=== PATIENT | female | born 1980 | race African-American/Black ===

== ENCOUNTER 2017-06-02 05:56 | Inpatient (IN) | payer MEDICAID ==
[2017-06-02] VITALS (30 sets, daily range): BP systolic 127–178; BP diastolic 71–98; PULSE 18–84; RESP 17–20; TEMP 97.6–98.7; O2SAT 99–100
[~2017-06-02] VITALS: Ht 167.6 cm; Wt 83.9 kg
[~2017-06-02 05:56] MED LIST: DOCU1CAP39 PO; FERR324T8 PO; PREN0.01 PO
[2017-06-02 06:51] LABS: AUTOMATED NEUTROPHIL # 2.4 TH/MM3 (1.8-7.7); BASOPHIL % 0.9 % (0.0-2.0); EOSINOPHIL # 0.2 TH/MM3 (0-0.4); EOSINOPHIL % 4.9 % (0.0-4.0); HEMATOCRIT 34.7 % (35.0-46.0); HEMOGLOBIN 11.8 GM/DL (11.6-15.3); LYMPH % 21.2 % (9.0-44.0); LYMPHOCYTE # 0.9 TH/MM3 (1.0-4.8); MEAN CELL VOLUME 86.6 FL (80.0-100.0); MEAN CORPUSCULAR HEMOGLOBIN 29.4 PG (27.0-34.0); MEAN CORPUSCULAR HGB CONC 33.9 % (32.0-36.0); MEAN PLATELET VOLUME 9.1 FL (7.0-11.0); MONO % 17.1 % (0.0-8.0); MONOCYTE # 0.7 TH/MM3 (0-0.9); NEUT % 55.9 % (16.0-70.0); PLATELET COUNT 166 TH/MM3 (150-450); RED CELL DISTRIBUTION WIDTH 13.7 % (11.6-17.2); WHITE BLOOD COUNT 4.3 TH/MM3 (4.0-11.0)
[2017-06-02] MEDS ORDERED: ceFAZolin 2 GM PREMIX 50 ML IV SCH (07:00)
[2017-06-02] MEDS ORDERED: LACTATED RINGER'S 1000 ML IV ONE (07:00)
[2017-06-02] MEDS ORDERED: LACTATED RINGER'S 1000 ML IV SCH (07:00)
[2017-06-02] MEDS ORDERED: CITRIC ACID-SODIUM CITRATE LIQ 30 ML UDC PO SCH (07:00)
[2017-06-02 07:25] LABS: BILIRUBIN, URINE NEG (NEG); BLOOD, URINE NEG (NEG); GLUCOSE,URINE NEG (NEG); KETONE, URINE NEG (NEG); MUCUS URINE FEW /lpf (OCC); NITRITE,URINE NEG (NEG); PH, URINE 6.5 (5.0-8.5); SQUAMOUS EPITHELIAL CELL URINE 6 /hpf (0-5); URINE COLOR YELLOW (YELLW/STRAW); URINE LEUKOCYTE ESTERASE NEG (NEG)
[2017-06-02] MEDS ORDERED: DOCUSATE SODIUM 50 MG/SENNA 8.6 MG TAB PO PRN (08:00)
[2017-06-02] MEDS ORDERED: SIMETHICONE 80 MG CHEWABLE TAB PO PRN (08:00)
[2017-06-02] MEDS ORDERED: KETOROLAC TROMETHAMINE 60 MG/2 ML (IM) VIAL IM PRN (08:00)
[2017-06-02] MEDS ORDERED: SODIUM CHLORIDE 0.9% FLUSH 10 ML FLUSH IV FLUSH PRN (08:00)
[2017-06-02] MEDS ORDERED: OXYTOCIN 30 UNITS-500ML PREMIX 500 ML IV ONE (08:00)
[2017-06-02] MEDS ORDERED: ONDANSETRON HCL 4 MG/2 ML VIAL IV PUSH PRN (08:00)
[2017-06-02] MEDS ORDERED: MORPHINE SULFATE PF 5 MG/10 ML VIAL ONE (08:07)
[2017-06-02] MEDS ORDERED: ACETAMINOPHEN 1000 MG/100 ML 100 ML IV ONE (08:07)
--- NOTE | 2017-06-02 08:34 | MH ---
cc: Zelda Lux MD DATE OF ADMISSION: 06/02/2017 HISTORY OF PRESENT ILLNESS: She is 36 years old, 4, para 2-1-0-2, intrauterine at 39-weeks, previous section x 2, previous myomectomy, intrauterine insemination . The patient is being admitted for repeat . She declines a tubal ligation. care has been with [facility] complicated by a Bartholin cyst which was I and D'd at about 29 weeks. She had group B strep on the Bartholin swab. PAST OB HISTORY: Significant for 1 vaginal stillborn in 2008, a in 2009, in 2011. PAST WRAP CHECKER HISTORY: Significant for a myomectomy in 2008. Her Pap smear was atypical squamous cells of undetermined significance in October of 2016. She has a history of fibroids. PAST MEDICAL HISTORY: She denies hypertension, diabetes or asthma. PAST SURGICAL HISTORY: She had 2 C-sections, laparoscopy, myomectomy. MEDICATIONS: She takes vitamins. ALLERGIES: NO KNOWN DRUG ALLERGIES PHYSICAL EXAMINATION: VITAL SIGNS: Stable. She is afebrile. Blood pressure is 128/82. She is 196 pounds. HEAD/HEART/CHEST/LUNG: Exams are all within normal limits. ABDOMEN: Soft, nontender, gravid. PELVIC: Her cervix is closed. EXTREMITIES: No edema, cyanosis or clubbing. ASSESSMENT AND PLAN: She is 36 years old, 4, para 2-1-0-2 intrauterine at 39 weeks, previous section x2 with previous myomectomy x1. She has been counseled as to the risks, benefits and alternatives of a repeat section. She declines a tubal ligation. MD LEXIE Bhatt/TL/rh , 03:14 PM , 03:26 PM
[2017-06-02] MEDS: SODIUM CHLORIDE 0.9% FLUSH 10 ML FLUSH IV FLUSH SCH ×2 (09:00→21:27)
--- NOTE | 2017-06-02 09:40 | MP ---
cc: Zelda Lux MD DATE OF OPERATION: 06/02/2017 PREOPERATIVE DIAGNOSIS: Intrauterine at 39 weeks. Previous section x 2. Previous myomectomy. POSTOPERATIVE DIAGNOSIS: Intrauterine at 39 weeks. Previous section x 2. Previous myomectomy. PROCEDURE: Repeat lower segment transverse section via Pfannenstiel skin incision. SURGEON: Zelda Lux MD ANESTHESIA: Spinal. FLUIDS: 1500 mL. ESTIMATED BLOOD LOSS: 650 mL. URINE OUTPUT: 200 mL clear yellow at the end of the procedure. FINDINGS: A live female was delivered vertex presentation. 's 8 at one minute, 8 at five minutes. weight was 7 pounds, 15 ounces. PROCEDURE: The patient was taken to the operating room where spinal anesthesia was found to be adequate. She was then prepped and draped in the normal sterile fashion in the dorsal supine position with a leftward tilt. A Pfannenstiel skin incision was made with a scalpel and carried down to the underlying layer of fascia. The fascia was nicked in the midline with a scalpel and the incision was extended laterally with curved Munson scissors. Attention was turned to the inferior aspect of the incision which was grasped with Vikram clamps, elevated and the rectus muscles dissected off sharply. Attention was turned to the superior aspect of the incision which was grasped with Vikram clamps, elevated and the rectus muscles dissected off sharply. The rectus muscles were in the midline. The peritoneum was elevated and entered sharply with Metzenbaum scissors. This incision was extended superiorly and inferiorly with good visualization of the bladder. The bladder blade was inserted. The vesicouterine peritoneum was noted to be low and a window was noted in the lower uterine segment. This was incised transversely with a scalpel. Clear amniotic fluid was noted. The uterine incision was extended laterally with bandage scissors. The vertex was delivered. The oral and nasopharynx were bulb suctioned with a syringe. The shoulders were delivered atraumatically. The cord was clamped x 2 and cut after waiting for 45 seconds. The placenta was delivered manually and sent for donation. The uterus was cleared of all clots and debris. The uterine incision was repaired in 2 layers with 1 Vicryl. Three additional [id number] sutures were placed in the midline for hemostasis. The gutters were cleared of all clots and debris. The fascia was repaired in a running fashion with 0 Vicryl. The skin was closed with nirmala. A pressure dressing was applied. The sponge, lap, needle and instrument counts were correct x 3. The patient was transferred to the recovery room in stable condition. MD LEXIE Bhatt/KIMBER/elliot , 09:04 AM , 09:32 AM SONJA
[2017-06-02] MEDS ORDERED: NIFEdipine 10 MG CAP ONE ×2 (10:08→10:33)
[2017-06-02] MEDS ORDERED: OXYTOCIN 30 UNITS-500ML PREMIX 500 ML ONE (10:52)
[2017-06-02] MEDS ORDERED: hydrALAZINE HCL 20 MG/ML VIAL ONE (11:38)
[2017-06-02] MEDS: oxyCODONE/ACETAMINOPHEN 5 MG/325 MG TAB PO PRN ×2 (11:49→18:24)
[2017-06-02] MEDS ORDERED: ONDANSETRON HCL 4 MG/2 ML VIAL IV ONE (12:00)
[2017-06-02] MEDS ORDERED: KETOROLAC TROMETHAMINE 30 MG/ML (IVP) VIAL IV PUSH ONE (12:00)
[2017-06-02] MEDS ORDERED: NIFEdipine 20 MG CAP PO PRN (12:00)
[2017-06-02] MEDS ORDERED: NIFEdipine 10 MG CAP PO PRN (12:00)
[2017-06-02] MEDS ORDERED: CALCIUM GLUCONATE 10% 1 GM/10 ML VIAL IV PUSH PRN (12:00)
[2017-06-02] MEDS ORDERED: EPIDURAL-NALOXONE HCL 0.4 MG/ML AMP IV PUSH PRN (12:00)
[2017-06-02] MEDS ORDERED: DEXAMETHASONE SOD PHOS 4 MG/ML VIAL IV ONE (12:00)
[2017-06-02] MEDS ORDERED: EPIDURAL-DO NOT ADMINISTER ANTICOAGULANTS PRN (12:00)
[2017-06-02] MEDS ORDERED: EPIDURAL-NO SYSTEMIC NARCOTICS PRN (12:00)
[2017-06-02] MEDS ORDERED: MAGNESIUM SULFATE 40 GM PREMIX 1,000 ML IV SCH (12:00)
[2017-06-02] MEDS ORDERED: LACTATED RINGER'S 1000 ML INJ 1,000 ML IV SCH ×2 (12:00→12:48)
[2017-06-02] MEDS ORDERED: EPIDURAL-DIPHENHYDRAMINE HCL 50 MG/ML VIAL IV PUSH PRN (12:00)
[2017-06-02] MEDS ORDERED: LACTATED RINGER'S 1000 ML INJ 1,000 ML IV ONE (12:00)
[2017-06-02] MEDS ORDERED: MAGNESIUM SULFATE 4GRAM PRMIX-LOAD DOSE IV ONE (12:00)
[2017-06-02] MEDS ORDERED: OXYTOCIN 10 UNIT/ML AMP IV ONE (12:00)
[2017-06-02] MEDS ORDERED: EPIDURAL-DIPHENHYDRAMINE HCL 50 MG CAP PO PRN (12:00)
[2017-06-02] MEDS ORDERED: hydrALAZINE HCL 20 MG/ML VIAL IV ONE ×2 (12:15)
[2017-06-02] MEDS ORDERED: OXYTOCIN 30 UNITS-500ML PREMIX 500 ML IV PRN (18:00)
[2017-06-02] MEDS: IBUPROFEN 600 MG TAB PO PRN (18:24)
[2017-06-02] MEDS ORDERED: ZOLPIDEM TARTRATE 5 MG TAB PO PRN (21:00)
[2017-06-03] VITALS (11 sets, daily range): BP systolic 126–152; BP diastolic 71–88; PULSE 81–100; RESP 14–36; TEMP 98.3–99.4; O2SAT 97–100
[2017-06-03 06:17] LABS: AUTOMATED NEUTROPHIL # 7.2 TH/MM3 (1.8-7.7); BASOPHIL % 0.3 % (0.0-2.0); EOSINOPHIL % 0.1 % (0.0-4.0); LYMPH % 13.1 % (9.0-44.0); LYMPHOCYTE # 1.2 TH/MM3 (1.0-4.8); MEAN CELL VOLUME 87.1 FL (80.0-100.0); MEAN CORPUSCULAR HEMOGLOBIN 30.1 PG (27.0-34.0); MEAN CORPUSCULAR HGB CONC 34.6 % (32.0-36.0); MEAN PLATELET VOLUME 9.5 FL (7.0-11.0); MONOCYTE # 0.8 TH/MM3 (0-0.9); NEUT % 77.5 % (16.0-70.0); PLATELET COUNT 135 TH/MM3 (150-450); RED BLOOD COUNT 1.84 MIL/MM3 (4.00-5.30); WHITE BLOOD COUNT 9.3 TH/MM3 (4.0-11.0)
[2017-06-03 06:31] LABS: HEMOGLOBIN 5.5 GM/DL (11.6-15.3)
[2017-06-03 07:37] LABS: HEMATOCRIT 15.4 % (35.0-46.0); HEMOGLOBIN 5.4 GM/DL (11.6-15.3)
--- NOTE | 2017-06-03 08:21 | HHI.OB ---
Subjective Post Operative Day: 1 Remarks Hg=5 , feels ok , will transfuse 2u Objective Vitals/I&O Vital Signs Date Time Temp Pulse Resp B/P (MAP) Pulse Ox O2 Delivery O2 Flow Rate FiO2 06/02/17 12:05 66 143/81 (101) 06/02/17 12:05 18 06/02/17 11:27 67 18 06/02/17 11:26 178/98 (124) 06/02/17 10:58 154/89 (110) 06/02/17 10:58 60 18 100 06/02/17 10:33 55 18 178/92 (120) 99 06/02/17 10:05 97.6 06/02/17 10:02 65 18 100 06/02/17 10:01 167/83 (111) 06/02/17 09:47 60 18 100 06/02/17 09:47 18 162/83 (109) 06/02/17 09:27 63 18 137/81 (99) 100 06/02/17 09:10 98.1 84 18 127/71 (89) 100 Result Diagram: 06/03/17 0720 Objective Remarks GENERAL: Well-nourished, well-developed patient. CARDIOVASCULAR: Regular rate and rhythm without murmurs, gallops, or rubs. RESPIRATORY: Breath sounds equal bilaterally. No accessory muscle use. ABDOMEN/GI: Abdomen soft, non-tender, bowel sounds present. Incision: dressing Clean, dry and intact. Fundus: Firm, non-tender at umbilicus. GENITOURINARY: Light to moderate bleeding. EXTREMITIES: No cyanosis or edema, non-tender, without signs of DVT. Medications and IVs Current Medications Medications (Trade) Dose Ordered Sig/Tomas Route Start Time Stop Time Status Last Admin (Bicitra Liq) [address] MACHINE RUNNER PO 06/02/17 07:00 06/05/17 06:59 06/02/17 07:08 Cefazolin Sodium/ Dextrose 50 ml @ 100 mls/hr ROAD MACHINE RUNNER IV 06/02/17 07:00 06/05/17 06:59 06/02/17 07:08 Lactated Ringer's 1,000 ml @ 100 mls/hr Q10H IV 06/02/17 12:48 06/03/17 08:47 06/02/17 20:56 Oxytocin 500 ml @ 100 mls/hr UNSCH X1 PRN IV 06/02/17 18:00 06/03/17 17:59 (NS Flush) 2 ml BID IV FLUSH 06/02/17 09:00 (NS Flush) 2 ml UNSCH PRN IV FLUSH 06/02/17 08:00 (Mylicon Chew) 80 mg QID PRN PO 06/02/17 08:00 (Motrin) 600 mg Q6H PRN PO 06/02/17 08:00 06/02/17 18:24 (Percocet 5-325 Mg) 1 tab Q4H PRN PO 06/02/17 08:00 06/02/17 18:24 (Percocet 5-325 Mg) 2 tab Q4H PRN PO 06/02/17 08:00 (Yasmeen-Colace) 2 tab Q12H PRN PO 06/02/17 08:00 06/02/17 18:23 (Ambien) 5 mg HS PRN PO 06/02/17 21:00 (M-M-R Ii Inj) 0.5 ml ONCE ONCE SQ 06/03/17 16:00 06/03/17 16:01 (Boostrix Inj) 0.5 ml ONCE ONCE IM 06/03/17 16:00 06/03/17 16:01 (Zofran Inj) 4 mg Q6H PRN IV PUSH 06/02/17 08:00 06/02/17 19:03 Lactated Ringer's 1,000 ml @ 75 mls/hr [id number] IV 06/02/17 12:00 Magnesium Sulfate 1,000 ml @ 50 mls/hr Q20H IV 06/02/17 12:00 (Calcium Gluconate Inj) 1 gm UNSCH PRN IV PUSH 06/02/17 12:00 Miscellaneous Information NO SYSTEMIC NARCOTICS TO BE GIVEN FO... UNSCH PRN .XX 06/02/17 12:00 06/03/17 12:00 (Narcan Inj) 0.4 mg UNSCH PRN IV PUSH 06/02/17 12:00 06/03/17 12:00 (Benadryl Inj) 25 mg Q6H PRN IV PUSH 06/02/17 12:00 06/03/17 12:00 (Benadryl) 50 mg Q6H PRN PO 06/02/17 12:00 06/03/17 12:00 Miscellaneous Information ALL NURSING DEPARTMENTS UNSCH PRN .XX 06/02/17 12:00 06/03/17 12:00 Assessment/Plan Problem List: (1) delivery delivered ICD Codes: O82 - Encounter for delivery without indication (2) Leiomyoma ICD Codes: D21.9 - Benign neoplasm of connective and other soft tissue, unspecified Assessment and Plan POD #1 s/p repeat C/S, low hemoglobin transfuse 2u prbc, IS Discharge Planning routine Attending Attestation seen by Zelda Mitchell MD Jun 03, 2017 08:21
[2017-06-03] MEDS: oxyCODONE/ACETAMINOPHEN 5 MG/325 MG TAB PO PRN ×2 (09:36→15:36)
[2017-06-03] MEDS: IBUPROFEN 600 MG TAB PO PRN ×2 (09:37→15:36)
[2017-06-03] MEDS ORDERED: MEASLES, MUMPS, RUBELLA VACCINE 0.5 ML VIAL SQ ONE (16:00)
[2017-06-03] MEDS ORDERED: DIPHTH/TETANUS/ACEL PERTUSSIS (BOOSTER) 0.5 ML VIAL/PFS IM ONE (16:00)
[2017-06-03 19:12] LABS: MEAN CELL VOLUME 85.7 FL (80.0-100.0); MEAN CORPUSCULAR HEMOGLOBIN 29.4 PG (27.0-34.0); MEAN CORPUSCULAR HGB CONC 34.3 % (32.0-36.0); MEAN PLATELET VOLUME 8.9 FL (7.0-11.0); PLATELET COUNT 123 TH/MM3 (150-450); RED BLOOD COUNT 2.24 MIL/MM3 (4.00-5.30); RED CELL DISTRIBUTION WIDTH 14.1 % (11.6-17.2); WHITE BLOOD COUNT 11.4 TH/MM3 (4.0-11.0)
[2017-06-03 19:26] LABS: HEMATOCRIT 19.2 % (35.0-46.0); HEMOGLOBIN 6.6 GM/DL (11.6-15.3)
[2017-06-03 19:43] LABS: ALBUMIN 2.3 GM/DL (3.4-5.0); ALT (GPT) 25 U/L (10-53); AST (GOT) 19 U/L (15-37); BICARBONATE 24.1 MEQ/L (21.0-32.0); BLOOD UREA NITROGEN 6 MG/DL (7-18); CALCIUM 8.2 MG/DL (8.5-10.1); CHLORIDE 108 MEQ/L (98-107); CREATININE 0.91 MG/DL (0.50-1.00); GLOMERULAR FILTRATION RATE 85 ML/MIN (>89); GLUCOSE,RANDOM 115 MG/DL (74-106); SODIUM (NA) 142 MEQ/L (136-145)
[2017-06-03 19:46] LABS: ALKALINE PHOSPHATASE 98 U/L (45-117); TOTAL BILIRUBIN ADULT 0.9 MG/DL (0.2-1.0); TOTAL PROTEIN 5.5 GM/DL (6.4-8.2)
[2017-06-04 02:00] VITALS: BP 146/82; PULSE 98; RESP 16; TEMP 98.5
[2017-06-04] MEDS: IBUPROFEN 600 MG TAB PO PRN ×2 (05:39→20:16)
[2017-06-04] MEDS: oxyCODONE/ACETAMINOPHEN 5 MG/325 MG TAB PO PRN ×2 (05:40→20:16)
[2017-06-04 05:50] LABS: AUTOMATED NEUTROPHIL # 8.5 TH/MM3 (1.8-7.7); BASOPHIL % 0.2 % (0.0-2.0); EOSINOPHIL # 0.1 TH/MM3 (0-0.4); EOSINOPHIL % 0.9 % (0.0-4.0); LYMPH % 13.2 % (9.0-44.0); LYMPHOCYTE # 1.5 TH/MM3 (1.0-4.8); MEAN CELL VOLUME 85.5 FL (80.0-100.0); MEAN CORPUSCULAR HGB CONC 35.1 % (32.0-36.0); MONO % 9.1 % (0.0-8.0); NEUT % 76.6 % (16.0-70.0); PLATELET COUNT 112 TH/MM3 (150-450); RED BLOOD COUNT 2.05 MIL/MM3 (4.00-5.30); WHITE BLOOD COUNT 11.1 TH/MM3 (4.0-11.0)
[2017-06-04 06:01] LABS: HEMATOCRIT 17.5 % (35.0-46.0); HEMOGLOBIN 6.1 GM/DL (11.6-15.3)
[2017-06-04 06:08] LABS: ALBUMIN 2.3 GM/DL (3.4-5.0); ALT (GPT) 22 U/L (10-53); AST (GOT) 21 U/L (15-37); BICARBONATE 25.8 MEQ/L (21.0-32.0); BLOOD UREA NITROGEN 6 MG/DL (7-18); CALCIUM 7.9 MG/DL (8.5-10.1); CHLORIDE 109 MEQ/L (98-107); CREATININE 0.68 MG/DL (0.50-1.00); GLOMERULAR FILTRATION RATE 118 ML/MIN (>89); GLUCOSE,RANDOM 80 MG/DL (74-106); SODIUM (NA) 143 MEQ/L (136-145)
[2017-06-04 06:10] LABS: ALKALINE PHOSPHATASE 96 U/L (45-117); TOTAL BILIRUBIN ADULT 0.7 MG/DL (0.2-1.0); TOTAL PROTEIN 5.4 GM/DL (6.4-8.2)
[2017-06-04 08:00] VITALS: BP 145/80; PULSE 83; RESP 18; TEMP 98.4; O2SAT 100
--- NOTE | 2017-06-04 09:58 | HHI.OB ---
Subjective Post Operative Day: 2 Remarks pain controlled, +flatus, ambulating, voiding, HT=15 to 17 after 2u PRBC Objective Vitals/I&O Vital Signs Date Time Temp Pulse Resp B/P (MAP) Pulse Ox O2 Delivery O2 Flow Rate FiO2 06/04/17 08:00 98.4 83 18 06/04/17 08:00 145/80 (101) 100 06/04/17 02:00 98.5 98 16 146/82 (103) 06/03/17 20:00 98.4 86 16 147/88 06/03/17 20:00 98.4 86 16 147/88 (107) 06/03/17 14:35 98.5 91 18 142/78 99 06/03/17 14:20 98.4 86 18 144/84 100 06/03/17 13:00 98.4 96 14 142/71 (94) 97 06/03/17 12:00 152/77 (102) 06/03/17 12:00 98.5 95 36 100 Intake & Output 06/04/17 06/04/17 07:00 19:00 Intake Total 400 ml Balance 400 ml Packed Cells 400 ml Result Diagram: 06/04/17 0506 06/04/17 0506 Objective Remarks GENERAL: Well-nourished, well-developed patient. CARDIOVASCULAR: Regular rate and rhythm without murmurs, gallops, or rubs. RESPIRATORY: Breath sounds equal bilaterally. No accessory muscle use. ABDOMEN/GI: Abdomen soft, non-tender, bowel sounds present. Incision: nirmala Clean, dry and intact. Fundus: Firm, non-tender at umbilicus. GENITOURINARY: Light to moderate bleeding. EXTREMITIES: No cyanosis or edema, non-tender, without signs of DVT. Medications and IVs Current Medications Medications (Trade) Dose Ordered Sig/Tomas Route Start Time Stop Time Status Last Admin (Bicitra Liq) 30 ml RETAIL C[employer]IER ASSOCIATE PO 06/02/17 07:00 06/05/17 06:59 06/02/17 07:08 Cefazolin Sodium/ Dextrose 50 ml @ 100 mls/hr RETAIL CASHIER ASSOCIATE IV 06/02/17 07:00 06/05/17 06:59 06/02/17 07:08 (NS Flush) 2 ml BID IV FLUSH 06/02/17 09:00 (NS Flush) 2 ml UNSCH PRN IV FLUSH 06/02/17 08:00 (Mylicon Chew) 80 mg QID PRN PO 06/02/17 08:00 (Motrin) 600 mg Q6H PRN PO 06/02/17 08:00 06/04/17 05:39 (Percocet 5-325 Mg) 1 tab Q4H PRN PO 06/02/17 08:00 06/04/17 05:40 (Percocet 5-325 Mg) 2 tab Q4H PRN PO 06/02/17 08:00 (Yasmeen-Colace) 2 tab Q12H PRN PO 06/02/17 08:00 06/02/17 18:23 (Ambien) 5 mg HS PRN PO 06/02/17 21:00 (Zofran Inj) 4 mg Q6H PRN IV PUSH 06/02/17 08:00 06/02/17 19:03 Lactated Ringer's 1,000 ml @ 75 mls/hr [id number] IV 06/02/17 12:00 Magnesium Sulfate 1,000 ml @ 50 mls/hr Q20H IV 06/02/17 12:00 (Calcium Gluconate Inj) 1 gm UNSCH PRN IV PUSH 06/02/17 12:00 Assessment/Plan Problem List: (1) delivery delivered ICD Codes: O82 - Encounter for delivery without indication (2) Leiomyoma ICD Codes: D21.9 - Benign neoplasm of connective and other soft tissue, unspecified Assessment and Plan POD #2 s/p repeat C/S, low hemoglobin s/p 2u prbc, IS, CT abd/pelvis today Discharge Planning routine Attending Attestation seen by Zelda Mitchell MD Jun 04, 2017 09:58
[2017-06-04] MEDS ORDERED: DIATRIZOATE MEGLUM/DIATRIZOATE SOD 9 ML CUP PO ONE (11:45)
[2017-06-04] MEDS ORDERED: IOHEXOL 350 MG/ML 10 ML VIAL (for RAD DIAG) IVCONTRAST ONE (19:43)
[2017-06-04 20:20] VITALS: BP 148/84; PULSE 83; RESP 16; TEMP 99.1
[2017-06-04 21:07] LABS: MEAN CELL VOLUME 86.5 FL (80.0-100.0); MEAN CORPUSCULAR HEMOGLOBIN 30.1 PG (27.0-34.0); MEAN CORPUSCULAR HGB CONC 34.8 % (32.0-36.0); MEAN PLATELET VOLUME 8.7 FL (7.0-11.0); PLATELET COUNT 123 TH/MM3 (150-450); RED BLOOD COUNT 2.19 MIL/MM3 (4.00-5.30); RED CELL DISTRIBUTION WIDTH 14.3 % (11.6-17.2); WHITE BLOOD COUNT 10.4 TH/MM3 (4.0-11.0)
[2017-06-04 21:17] LABS: HEMATOCRIT 18.9 % (35.0-46.0); HEMOGLOBIN 6.6 GM/DL (11.6-15.3)
--- NOTE | 2017-06-04 21:47 | RADRPT ---
EXAM DATE/TIME: 06/04/2017 19:42 [facility] COMPARISON: No previous studies available for comparison. INDICATIONS : Diffuse abdominal pain and distension today. IV CONTRAST: 90 cc Omnipaque 350 (iohexol) IV ORAL CONTRAST: Prescribed oral contrast ingested. RADIATION DOSE: 15.72 CTDIvol (mGy) MEDICAL HISTORY : uterine fibroids SURGICAL HISTORY : None. ENCOUNTER: Initial ACUITY: 1 day PAIN SCALE: 7/10 LOCATION: Bilateral abdomen TECHNIQUE: Volumetric scanning of the abdomen and pelvis was performed. Using automated exposure control and ad justment of the mA and/or kV according to patient size, radiation dose was kept as low as reasonably achievable to obtain optimal diagnostic quality images. DICOM format image data is available electro nically for review and comparison. FINDINGS: There is some hazy airspace disease at the left lung base. Right lung base is clear. Probable trace free anterior to the liver. There is a laparotomy in the lower anterior abdominal wall with skin nirmala present. There is a dense area of increased attenuation in the anterior pelvis juan r the lateral laparotomy scar measuring up to 6.2 cm in thickness an 18.3 cm in transverse diameter, possibly a area of hemorrhage. The uterus is markedly enlarged measuring up to 16.2 cm in transverse diameter and 11.3 cm in AP diam eter characteristic of reported fibroid involvement. There is a small amount of free fluid in the pelvis. No acute findings in the liver, spleen, adrenals, kidneys or pancreas. Nonobstructing calcification l eft kidney. No calcified gallstones or biliary ductal dilatation. No bowel obstruction. CONCLUSION: 1. Recent lower anterior abdominal wall laparotomy with dense soft tissue area in the lower anterior pelvic region measuring up to 18.3 x 6.2 cm, possibly a hematoma. 2. Markedly enlarged uterus measuring up to 16.2 cm in transverse diameter most characteristic of fib roid involvement. 3. Trace free air adjacent to the liver anteriorly. 4. Nonobstructing left renal calculus. 5. Mild anasarca. 6. Mild air space disease left lung base. Thomas Healy MD on June 04, 2017 at 21:40 Board Certified Radiologist. This report was verified electronically.
[2017-06-05] VITALS: TEMP 97.9
[2017-06-05 05:16] LABS: MEAN CELL VOLUME 86.4 FL (80.0-100.0); MEAN CORPUSCULAR HEMOGLOBIN 30.2 PG (27.0-34.0); MEAN CORPUSCULAR HGB CONC 34.9 % (32.0-36.0); MEAN PLATELET VOLUME 8.5 FL (7.0-11.0); PLATELET COUNT 130 TH/MM3 (150-450); RED BLOOD COUNT 2.25 MIL/MM3 (4.00-5.30); RED CELL DISTRIBUTION WIDTH 14.4 % (11.6-17.2); WHITE BLOOD COUNT 9.2 TH/MM3 (4.0-11.0)
[2017-06-05 06:14] LABS: HEMOGLOBIN 6.8 GM/DL (11.6-15.3)
[2017-06-05 06:15] LABS: HEMATOCRIT 19.5 % (35.0-46.0)
[2017-06-05 07:37] VITALS: BP 147/70; PULSE 77; RESP 20; TEMP 98.3
[2017-06-05] MEDS: IBUPROFEN 600 MG TAB PO PRN (08:08)
[2017-06-05] MEDS: oxyCODONE/ACETAMINOPHEN 5 MG/325 MG TAB PO PRN (08:08)
--- NOTE | 2017-06-05 10:36 | HHI.OB ---
Subjective Post Operative Day: 3 Remarks pain controlled , +BM, CBC stable, hematoma on CT 6x18cm Objective Vitals/I&O Vital Signs Date Time Temp Pulse Resp B/P (MAP) Pulse Ox O2 Delivery O2 Flow Rate FiO2 06/05/17 07:37 98.3 20 06/05/17 07:37 77 147/70 (95) 06/05/17 00:00 97.9 06/04/17 20:20 99.1 83 16 06/04/17 20:20 148/84 (105) Result Diagram: 06/05/17 0500 06/04/17 0506 Objective Remarks GENERAL: Well-nourished, well-developed patient. CARDIOVASCULAR: Regular rate and rhythm without murmurs, gallops, or rubs. RESPIRATORY: Breath sounds equal bilaterally. No accessory muscle use. ABDOMEN/GI: Abdomen soft, non-tender, bowel sounds present. Incision: nirmala Clean, dry and intact. Fundus: Firm, non-tender at umbilicus. GENITOURINARY: Light to moderate bleeding. EXTREMITIES: No cyanosis or edema, non-tender, without signs of DVT. Medications and IVs Current Medications Medications (Trade) Dose Ordered Sig/Tomas Route Start Time Stop Time Status Last Admin (NS Flush) 2 ml BID IV FLUSH 06/02/17 09:00 (NS Flush) 2 ml UNSCH PRN IV FLUSH 06/02/17 08:00 (Mylicon Chew) 80 mg QID PRN PO 06/02/17 08:00 (Motrin) 600 mg Q6H PRN PO 06/02/17 08:00 06/05/17 08:08 (Percocet 5-325 Mg) 1 tab Q4H PRN PO 06/02/17 08:00 06/04/17 05:40 (Percocet 5-325 Mg) 2 tab Q4H PRN PO 06/02/17 08:00 06/05/17 08:08 (Yasmeen-Colace) 2 tab Q12H PRN PO 06/02/17 08:00 06/02/17 18:23 (Ambien) 5 mg HS PRN PO 06/02/17 21:00 (Zofran Inj) 4 mg Q6H PRN IV PUSH 06/02/17 08:00 3/8/18 19:03 Lactated Ringer's 1,000 ml @ 75 mls/hr [id number] IV 06/02/17 12:00 Magnesium Sulfate 1,000 ml @ 50 mls/hr Q20H IV 06/02/17 12:00 (Calcium Gluconate Inj) 1 gm UNSCH PRN IV PUSH 06/02/17 12:00 Assessment/Plan Problem List: (1) delivery delivered ICD Codes: O82 - Encounter for delivery without indication (2) Leiomyoma ICD Codes: D21.9 - Benign neoplasm of connective and other soft tissue, unspecified Assessment and Plan POD #3 s/p repeat C/Sx3, low hemoglobin-asymptomatic, vitals stable s/p 2u prbc, IS, CT abd/pelvis showed hematoma 6x18 cm options discussed in length with pt, drainage vs. observation pt prefers observation, will remove nirmala in office 06/08 discharge home Discharge Planning routine Attending Attestation seen by Zelda Mitchell MD Jun 05, 2017 10:36
[2017-06-05] MEDS ORDERED: OXYC1TAB63 PO (10:39)
[2017-06-05] MEDS ORDERED: IBUP-232 PO (10:39)
--- NOTE | 2017-06-05 10:39 | HHI.DCPOC ---
Discharge Care Plan Your Health Problems Are: Pelvic pain Report Symptoms to Your Doctor -Temperature above 100.5 degrees -Redness, of incision or excessive or foul smelling drainage -Unusual pain or calf pain -Increased vaginal bleeding -Painful or difficulty urinating -Feelings of extreme sadness or anxiety after 2 weeks Goals to Promote Your Health * To prevent worsening of your condition and complications * To maintain your health at the optimal level Directions to Meet Your Goals Take your medications as prescribed Follow your dietary instruction Follow activity as directed Ensure plenty of rest for recovery Drink fluids for hydration Keep your appointments as scheduled Take your immunizations and boosters as scheduled If your symptoms worsen call your PCP, if no PCP go to Urgent Care Center or Emergency Room Smoking is Dangerous to Your Health. Avoid second hand smoke Call the 24-hour crisis hotline for domestic abuse at Zelda Lux MD Jun 05, 2017 10:39
== END 2017-06-05 12:38 | disposition home or self-care (01) | DRG 766 ==
LOC: H2EB 05:56 → H1EA 11:11
PROVIDERS: ADMIT Obstetrics & Gynecology; ATTEND Obstetrics & Gynecology
PROC: 10D00Z1 Extraction of Products of Conception, Low, Open Approach (ICD-10-PCS; principal; 2017-06-02)
DX: O34.211 Maternal care for low transverse scar from previous cesarean delivery (principal); D25.9 Leiomyoma of uterus, unspecified; Z37.0 Single live birth; O99.02 Anemia complicating childbirth; Z3A.39 39 weeks gestation of pregnancy; O34.13 Maternal care for benign tumor of corpus uteri, third trimester
CPT/HCPCS: 36430; 59025; 74177; 80053; 80307; 81001; 85014; 85018; 85025; 85027; 86850; 86900; 86901; 86920; 90715; 94150; J0131; J0360; J0690; J1100; J1885; J2274; J2405; J2590; J3010; J7120; P9016; Q9963; Q9967